=== PATIENT | female | born 1995 | race Caucasian/White ===

== ENCOUNTER 2019-03-29 14:20 | Emergency (ER) | payer OTHER, SELFPAY ==
--- NOTE | ~2019-03-29 | XR_ITS ---
EXAMINATION: XR chest 2V EXAM DATE: 03/29/2019 16:40 INDICATION: Cough, fever, congestion. Flu. TECHNIQUE: Frontal and lateral projections of the chest obtained and reviewed. There is no prior cori dy for comparison. FINDINGS: The lungs are clear. There are no pleural effusions. The cardiomediastinal silhouette is within normal limits. There is no pneumothorax suspected. The bones and soft tissues are unremarkab le. IMPRESSION: Normal chest x-ray exam. Reviewed, dictated and finalized at location A. [employer] IMPRESSION: Normal chest x-ray exam.
[2019-03-29 15:24] VITALS: BP 132/87; PULSE 97; RESP 19; TEMP 37.3; O2SAT 99
--- NOTE | 2019-03-29 16:01 | ED.URI ---
HPI - URI/Sore Throat General Chief Complaint: Upper Respiratory Infection Stated Complaint: cough and body aches Time Seen by Provider: 03/29/19 15:55 Source: patient Mode of arrival: ambulatory Limitations: no limitations History of Present Illness HPI Narrative: Patient is a 24-year-old female who presents to emergency department for evaluation of fever chills body aches cough congestion sore throat rhinorrhea began on seen at an urgent care Friday with negative influenza. Patient has been attempting [id number] medications with minimal improvement denies vomiting diarrhea and on arrival is in no distress Related Data Allergies Allergy/AdvReac Type Severity Reaction Status Date / Time No Known Allergies Allergy Verified 03/29/19 15:41 Review of Systems Review of Systems: Narrative: CONSTITUTIONAL: Positive for fever, chills, and sweats. EYES: Denies redness, or discharge. ENT: Positive for rhinorrhea, congestion, sore throat, and otalgia. CARDIOVASCULAR: Denies chest pain RESPIRATORY: Denies dyspnea. Positive for cough GASTROINTESTINAL: Denies abdominal pain, nausea, vomiting, or diarrhea. GENITOURINARY: Denies dysuria or hematuria. SKIN: Denies rash or itching. MUSCULOSKELETAL: Denies back pain, joint pain, or myalgia. NEUROLOGIC: Denies headache, or weakness. [facility] Social History Social History (Updated 03/29/19 @ 16:12 by Bird Valadez PA-C) Smoking status: Current every day smoker Gender identity (if verbalized by the patient): Female Exam Narrative: Exam Narrative: GENERAL: Ill-appearing, well-nourished, and in no acute distress. HEAD: Normocephalic, atraumatic. EYES: PERRLA and EOMI. ENT: Nares clear, no rhinorrhea or epistaxis. Mucous membranes moist. Oropharynx without tonsillar hypertrophy exudate or other lesions. NECK: Supple. No adenopathy or masses. CHEST: Clear to auscultation. No respiratory distress. Expiratory wheezes noted HEART: Regular rate and rhythm. No murmur heard. EXTREMITIES: Normal range of motion. No edema. SKIN: Warm, dry, no rash. NEURO: No focal deficits. Alert and oriented x3. PSYCH: Normal mood and affect. Course Course Emergency Course: Patient in the room in no distress aware of case findings treatment plan and diagnosis agreeing to follow-up as directed or to return if symptoms worsen or concerns Vital Signs Vital signs: Vital Signs Temperature 99.1 F 03/29/19 15:24 Pulse Rate 97 03/29/19 15:24 Respiratory Rate 19 03/29/19 15:24 Blood Pressure 132/87 03/29/19 15:24 Pulse Oximetry 99 03/29/19 15:24 Temperature 99.1 F 03/29/19 15:24 Pulse Rate 97 03/29/19 15:24 Respiratory Rate 19 03/29/19 15:24 Blood Pressure 132/87 03/29/19 15:24 Pulse Oximetry 99 03/29/19 15:24 MDM - URI/Sore Throat MDM Narrative Medical decision making narrative: Patient in the room in no distress aware of case findings treatment plan and diagnosis with influenza no pneumonia seen on chest x-ray felt appropriate for outpatient reevaluation provided with reasons to return Lab Data Labs: Influenza A Screen Negative Reference Range: Negative Influenza B Screen Positive Reference Range: Negative Discharge Plan Discharge Clinical Impression: Influenza Patient Disposition: Home, Self-Care Condition: Stable Instructions: Antibiotic Form, Influenza (ED) Additional Instructions: Follow up with your primary care provider within 5-7 days. Go to ER for shortness of breath, difficulty breathing, chest pain, fever/chills, weakness, nauseau/vomitting, etc. or any other concerns. Stay well-hydrated Take any prescribed medications as directed. Follow patient education sheets If you do not have a drug allergy to tylenol or motrin and can tolerate it then take tylenol or motrin as needed for discomfort/pain. Prescriptions: New albuterol sulfate 90 mcg/actuation HFA aerosol inhal
[2019-03-29 16:16] VITALS: PULSE 96; RESP 20
[2019-03-29] MEDS: ALBUTEROL SULFATE NEB 2.5 MG/0.5 ML INH 5 MG INHALATION (16:16)
[2019-03-29] MEDS: IPRATROPIUM BR 0.02% INH SOLN 0.5 MG/2.5 ML VIAL INHALATION (16:17)
[2019-03-29] MEDS: predniSONE 20 MG TABLET 40 MG PO (16:46)
== END 2019-03-29 16:52 | disposition home or self-care (01) ==
PROVIDERS: Emergency Provider Emergency Medicine; PCP Family Medicine
DX: J10.1 Influenza due to other identified influenza virus with other respiratory manifestations (principal); F17.210 Nicotine dependence, cigarettes, uncomplicated
CPT/HCPCS: 71046; 87804; 94640; 99283; J7512

== ENCOUNTER 2020-08-11 16:05 | Emergency (ER) | payer OTHER, SELFPAY ==
--- NOTE | ~2020-08-11 | XR_ITS ---
XR chest 2V DATE: 08/11/2020 17:29 INDICATION: Cough and congestion. Anterior upper right chest pain. Smoker. TECHNIQUE: PA and lateral views COMPARISON: March 29, 2021 view chest FINDINGS: Normal heart size. No hilar or mediastinal enlargement. No pulmonary infiltrate or consolid ation, pleural effusion or pulmonary vascular congestion or pneumothorax. Included skeletal structure s are unremarkable. IMPRESSION: Negative chest Reviewed, dictated and finalized at location A. IMPRESSION: Negative chest
[2020-08-11 16:08] VITALS: BP 146/79; PULSE 93; RESP 18; TEMP 36.2; O2SAT 98
--- NOTE | 2020-08-11 17:00 | PC.NURSE ---
Informed EDP's & PA of pt not seen yet and in room 20. Dr Valenzuela, Dr Chambers, & Isacc Culver aware of pt in room awaiting to be seen.
--- NOTE | 2020-08-11 17:41 | ED.URI ---
HPI - URI/Sore Throat General Chief Complaint: Upper Respiratory Infection Stated Complaint: cough Time Seen by Provider: 08/11/20 17:01 Source: patient and family Mode of arrival: ambulatory Limitations: no limitations History of Present Illness HPI Narrative: 25-year-old with no major medical problems here with complaints of cough. Patient states that she has been to urgent care and was given Z-Jc and prednisone however it has been 2 days the symptoms have not improved. She denies any fever or chills. She also states that he will not allow her to work because of her symptoms. She will mentions that a Covid screen was negative MD elicited complaint: cough Description of mucous: clear Able to tolerate fluids by mouth: Yes Exacerbating factors: nothing Related Data Home Medications Medication Instructions Recorded Confirmed azithromycin [Zithromax Z-Jc] mg PO 08/11/20 prednisone 20 mg PO BID 08/11/20 Allergies Allergy/AdvReac Type Severity Reaction Status Date / Time No Known Allergies Allergy Verified 08/11/20 16:11 Review of Systems Review of Systems: All systems reviewed & are unremarkable except as noted in HPI and below Constitutional: Constitutional: Reports no additional constitutional complaints Eyes: Eyes: Reports no additional eye complaints ENT: Reports system reviewed and no additional complaints, except as documented Respiratory: Respiratory: Reports no additional respiratory complaints Gastrointestinal: Gastrointestinal: Reports no additional gastrointestinal complaints PMFSH Social History Social History Smoking status: Current every day smoker Gender identity (if verbalized by the patient): Female Exam Narrative: Exam Narrative: GENERAL: Well-appearing, well-nourished, and in no acute distress. HEAD: Normocephalic, atraumatic. EYES: PERRLA and EOMI.. NECK: Supple. CHEST: Clear to auscultation. No respiratory distress. HEART: Regular rate and rhythm. No murmur heard. Normal peripheral pulses. ABDOMEN: Soft, nontender, nondistended, normal active bowel sounds. EXTREMITIES: Normal range of motion. No edema. SKIN: Warm, dry, no rash. NEURO: No focal deficits. Alert and oriented x3. PSYCH: Normal mood and affect. Course Vital Signs Vital signs: Vital Signs Temperature 36.2 C L 08/11/20 16:08 Pulse Rate 93 08/11/20 16:08 Respiratory Rate 18 08/11/20 16:08 Blood Pressure 146/79 H 08/11/20 16:08 Pulse Oximetry 98 08/11/20 16:08 Temperature 36.2 C L 08/11/20 16:08 Pulse Rate 93 08/11/20 16:08 Respiratory Rate 18 08/11/20 16:08 Blood Pressure 146/79 H 08/11/20 16:08 Pulse Oximetry 98 08/11/20 16:08 MDM - URI/Sore Throat Imaging Data Radiologist's impression: ITS Impressions Chest X-Ray 08/11/20 17:35 IMPRESSION: Negative chest Discharge Plan Discharge Clinical Impression: Upper respiratory infection Patient Disposition: Home, Self-Care Condition: Stable Instructions: Antibiotic Form, Viral Syndrome (ED) Additional Instructions: Continue home medication, can return to work. Prescriptions: No Action albuterol sulfate 90 mcg/actuation HFA aerosol inhaler 2 puff INHALATION QID PRN (Reason: shortness of breath or wheezing) Qty: 6.7 RF: 0 Zithromax Z-Jc 250 mg Capsule PO RF: 0 prednisone 20 mg Tablet 20 mg PO BID RF: 0 Follow-up/Referrals: Nino Sahu M.D. [Primary Care Provider] - Time of Disposition: 17:45
[2020-08-11 17:52] VITALS: RESP 20
== END 2020-08-11 17:57 | disposition home or self-care (01) ==
PROVIDERS: Emergency Provider Family Medicine; PCP Family Medicine
DX: J06.9 Acute upper respiratory infection, unspecified (principal); F17.210 Nicotine dependence, cigarettes, uncomplicated
CPT/HCPCS: 71046; 99283

== ENCOUNTER 2023-06-16 16:42 | Emergency (ER) | payer OTHER, SELFPAY ==
--- NOTE | ~2023-06-16 | XR_ITS ---
EXAMINATION: XR chest 2V Exam Date/Time: 06/16/2023 17:40 CDT HISTORY: cough, SOB, congestion, CP x1week hx asthma Comparison: 08/11/2020, report only. RESULT: Lines, tubes, and devices: None. Lungs and pleura: Clear. Cardiomediastinal silhouette: Normal. Other: No acute osseous or upper abdominal finding. IMPRESSION: No acute cardiopulmonary process. Reviewed, dictated and finalized at location K.
[2023-06-16 17:05] VITALS: BP 141/80; PULSE 100; RESP 14; TEMP 36.8; O2SAT 96
--- NOTE | 2023-06-16 17:25 | ED.GENADULT ---
HPI - General Adult General Chief complaint: Upper Respiratory Infection Stated complaint: cough, asthma, sob Time Seen by Provider: 06/16/23 17:25 Focused HPI: Linda Danielle is a 28 y/o PMHx of Asthma and takes Albuterol, who presents with reports of having a cough for about a week, she reports of chest pain with coughing. Denies any fevers/chills. She has tried to use her inhaler and it was helping but it hasn't really worked the past two days. GENERAL: Well-appearing, well-nourished, and in no acute distress. HEAD: Normocephalic, atraumatic. CHEST: + wheezing / RR unlabored sating 96% on RA. NEURO: ?Alert and oriented x3. Patient screened in triage and initial orders placed.? ?Additional care and disposition to be based upon?diagnostic testing and treatment. Related Data Home Medications Medication Instructions Recorded Confirmed tramadol 50 mg tablet 100 mg PO .prn 06/10/22 06/10/22 Allergies Allergy/AdvReac Type Severity Reaction Status Date / Time No Known Allergies Allergy Verified 06/16/23 16:43 [facility] Social History Social History Smoking status: Current every day smoker Gender identity (if verbalized by the patient): Female Course Vital Signs Vital signs: Vital Signs Temperature 36.8 C 06/16/23 17:05 Pulse Rate 100 06/16/23 17:05 Respiratory Rate 14 06/16/23 17:05 Blood Pressure 141/80 H 06/16/23 17:05 Pulse Oximetry 96 06/16/23 17:05 Oxygen Delivery Room Air 06/16/23 17:05 Temperature 36.7 C 06/16/23 19:34 Pulse Rate 98 06/16/23 19:34 Respiratory Rate 15 06/16/23 19:34 Blood Pressure 138/86 06/16/23 19:34 Pulse Oximetry 99 06/16/23 19:34 Oxygen Delivery Room Air 06/16/23 18:58 Medical Decision Making Vital Signs Vital Signs: Vital Signs Temperature 36.8 C 06/16/23 17:05 Pulse Rate 100 06/16/23 17:05 Respiratory Rate 14 06/16/23 17:05 Blood Pressure 141/80 H 06/16/23 17:05 Pulse Oximetry 96 06/16/23 17:05 Oxygen Delivery Room Air 06/16/23 17:05 Temperature 36.7 C 06/16/23 19:34 Pulse Rate 98 06/16/23 19:34 Respiratory Rate 15 06/16/23 19:34 Blood Pressure 138/86 06/16/23 19:34 Pulse Oximetry 99 06/16/23 19:34 Oxygen Delivery Room Air 06/16/23 18:58 Lab Data Labs: Lab Results 06/16/23 Range/Units 18:00 Influenza A (RT-PCR) Negative (Negative) Influenza B (RT-PCR) Negative (Negative) RSV (RT-PCR) Negative (Negative) SARS-CoV-2 RNA (RT-PCR) Negative (Negative) Discharge Plan Discharge Clinical Impression: Upper respiratory infection, Asthma exacerbation Patient Disposition: Home, Self-Care Condition: Stable Instructions: Antibiotic Form, Asthma (ED), Upper Respiratory Infection (ED) Prescriptions: New albuterol sulfate 90 mcg/actuation HFA aerosol inhaler 2 puff inhalation QID PRN (Reason: shortness of breath or wheezing) Qty: 8.5 0RF benzonatate 200 mg capsule 200 mg PO TID PRN (Reason: cough) Qty: 21 0RF prednisone 20 mg tablet 40 mg PO DAILY 5 Days Qty: 10 0RF No Action tramadol 50 mg tablet 100 mg PO .prn albuterol sulfate 90 mcg/actuation HFA aerosol inhaler 2 puff INHALATION QID PRN (Reason: shortness of breath or wheezing) Qty: 6.7 0RF Follow-up/Referrals: Nino Sahu M.D. [Primary Care Provider] - Time of Disposition: 19:34
[2023-06-16] MEDS: predniSONE 40 MG, predniSONE 10 MG 50 MG PO (17:59)
[2023-06-16] MEDS: IPRATROPIUM 0.5 MG/ALBUTEROL SULFATE 2.5 MG AMPUL.NEB 3 ML INHALATION (18:06)
[2023-06-16 18:08] VITALS: PULSE 85; RESP 18
[2023-06-16 18:45] LABS: Influenza A QL RT-PCR Negative (Negative); Influenza B QL RT-PCR Negative (Negative); RSV RNA, RT-PCR Negative (Negative); SARS-CoV-2 RNA PCR Negative (Negative)
[2023-06-16 18:58] VITALS: O2SAT 97
--- NOTE | 2023-06-16 19:28 | ED.GENADULT ---
HPI - General Adult General Chief complaint: Upper Respiratory Infection Stated complaint: cough, asthma, sob Time Seen by Provider: 06/16/23 17:25 History of Present Illness HPI narrative: Patient 28-year-old female presents emergency department with chief complaint of cough and upper respiratory infection patient reports prior history of asthma and is currently out of her inhaler. Related Data Home Medications Medication Instructions Recorded Confirmed tramadol 50 mg tablet 100 mg PO .prn 06/10/22 06/10/22 Allergies Allergy/AdvReac Type Severity Reaction Status Date / Time No Known Allergies Allergy Verified 06/16/23 16:43 Review of Systems Review of Systems: A 10 system review of systems was completed on the patient and is negative except for what is stated in the HPI. Nursing and ancillary documentation was reviewed. [facility] Social History Social History Smoking status: Current every day smoker Gender identity (if verbalized by the patient): Female Exam Narrative: GENERAL: Well-appearing, well-nourished, and in no acute distress. HEAD: Normocephalic, atraumatic. EYES: PERRLA and EOMI. ENT: Nares clear, no rhinorrhea or epistaxis. Mucous membranes moist. NECK: Supple. CHEST: Scattered wheezes to auscultation. No respiratory distress. HEART: Regular rate and rhythm. No murmur heard. Normal peripheral pulses. ABDOMEN: Soft, nontender, nondistended, normal active bowel sounds. EXTREMITIES: Normal range of motion. No edema. SKIN: Warm, dry, no rash. NEURO: No focal deficits. Alert and oriented x3. PSYCH: Normal mood and affect. Course Vital Signs Vital signs: Vital Signs Temperature 36.8 C 06/16/23 17:05 Pulse Rate 100 06/16/23 17:05 Respiratory Rate 14 06/16/23 17:05 Blood Pressure 141/80 H 06/16/23 17:05 Pulse Oximetry 96 06/16/23 17:05 Oxygen Delivery Room Air 06/16/23 17:05 Temperature 36.8 C 06/16/23 17:05 Pulse Rate 85 06/16/23 18:08 Respiratory Rate 18 06/16/23 18:08 Blood Pressure 141/80 H 06/16/23 17:05 Pulse Oximetry 97 06/16/23 18:58 Oxygen Delivery Room Air 04/22/24 18:58 Medical Decision Making [facility] Narrative Medical decision making narrative: Differential diagnosis includes pneumonia, asthma exacerbation, upper respiratory infection, Chest x-ray showed no focal infiltrate Patient feels better after receiving p.o. steroids and breathing treatment. The patient will be given an inhaler treatment in the emergency department Vital Signs Vital Signs: Vital Signs Temperature 36.8 C 06/16/23 17:05 Pulse Rate 100 06/16/23 17:05 Respiratory Rate 14 06/16/23 17:05 Blood Pressure 141/80 H 06/16/23 17:05 Pulse Oximetry 96 06/16/23 17:05 Oxygen Delivery Room Air 06/16/23 17:05 Temperature 36.8 C 06/16/23 17:05 Pulse Rate 85 06/16/23 18:08 Respiratory Rate 18 06/16/23 18:08 Blood Pressure 141/80 H 06/16/23 17:05 Pulse Oximetry 97 06/16/23 18:58 Oxygen Delivery Room Air 06/16/23 18:58 Lab Data Labs: Lab Results 06/16/23 Range/Units 18:00 Influenza A (RT-PCR) Negative (Negative) Influenza B (RT-PCR) Negative (Negative) RSV (RT-PCR) Negative (Negative) SARS-CoV-2 RNA (RT-PCR) Negative (Negative) Discharge Plan Discharge Clinical Impression: Upper respiratory infection, Asthma exacerbation Patient Disposition: Home, Self-Care Condition: Stable Instructions: Antibiotic Form, Asthma (ED), Upper Respiratory Infection (ED) Prescriptions: New albuterol sulfate 90 mcg/actuation HFA aerosol inhaler 2 puff inhalation QID PRN (Reason: shortness of breath or wheezing) Qty: 8.5 0RF benzonatate 200 mg capsule 200 mg PO TID PRN (Reason: cough) Qty: 21 0RF prednisone 20 mg tablet 40 mg PO DAILY 5 Days Qty: 10 0RF No Action tramadol 50 mg tablet 100 mg
[2023-06-16] MEDS: BENZONATATE 100 MG CAPSULE 200 MG PO (19:32)
[2023-06-16] MEDS: ALBUTEROL SULFATE (*SP) INHALER 2 PUFF INHALATION (19:32)
[2023-06-16 19:34] VITALS: BP 138/86; PULSE 98; RESP 15; TEMP 36.7; O2SAT 99
== END 2023-06-16 19:39 | disposition home or self-care (01) ==
PROVIDERS: Nurse Practitioner Family; Emergency Provider Emergency Medicine; PCP Family Medicine
DX: J06.9 Acute upper respiratory infection, unspecified (principal); J45.901 Unspecified asthma with (acute) exacerbation; Z20.822 Contact with and (suspected) exposure to COVID-19; F17.210 Nicotine dependence, cigarettes, uncomplicated
CPT/HCPCS: 71046; 87637; 94640; 99283; A9270; J7512

== ENCOUNTER 2024-04-11 12:05 | Emergency (ER) | payer OTHER, SELFPAY ==
--- NOTE | ~2024-04-11 | CT_ITS ---
EXAMINATION: CT lumbar spine wo con DATE: 04/11/2024 16:14 INDICATION: Back pain TECHNIQUE: Computed tomography (CT) of the lumbar spine was performed without intravenous contrast. A utomated exposure control and iterative reconstruction technique were employed. The dose-length produ ct was 933.75 mGy-cm. COMPARISON: None FINDINGS: 10 degrees lumbar dextrocurvature. Sagittal alignment is normal. Vertebral body heights are normal. N o fractures. Mild disc height loss at L5-S1. The more cephalad disc heights are normal. Mild osteoart hritis at the bilateral sacroiliac joints. The following disc levels are specifically discussed: T12-L1: There is mild to moderate bilateral facet joint osteoarthritis. There is no neural foraminal stenosis. There is no central canal stenosis. L1-L2: There is mild bilateral facet joint osteoarthritis. There is no neural foraminal stenosis. The re is no central canal stenosis. L2-L3: Disc is mildly bulging. There is mild right and mild to moderate left facet joint osteoarthrit is. There is no neural foraminal stenosis. There is mild central canal stenosis. L3-L4: Disc is bulging. There is mild right and minimal left facet joint osteoarthritis. There is min imal bilateral neural foraminal stenosis. There is mild central canal stenosis. L4-L5: Disc is bulging. There is mild right and minimal left facet joint osteoarthritis. There is mil d bilateral neural foraminal stenosis. There is mild central canal stenosis. L5-S1: Disc is bulging. There is mild bilateral facet joint osteoarthritis. There is mild bilateral, left greater than right neural foraminal stenosis. There is mild central canal stenosis. IMPRESSION: 1. Mild lumbar dextrocurvature with minimal to mild spondylosis. No acute osseous abnormality. Reviewed, dictated and finalized at location A. [facility]PER IMPRESSION: 1. Mild lumbar dextrocurvature with minimal to mild spondylosis. No acute osseo us abnormality.
[2024-04-11 12:19] VITALS: BP 154/111; PULSE 81; RESP 20; TEMP 36.5; O2SAT 100
--- OUTSIDE RECORDS SUMMARY | 2024-04-11 13:01 | XMS_ITS | Clinical Summary ---
Author Organization [facility] Address [address] [place] [address] Care Team Providers Care Sports Editor Name Role Phone Nino Sahu MD Primary Care Provider [phone] Allergies No known active allergies Medications albuterol sulfate HFA 108 (90 Base) MCG/ACT inhaler Inhale 2 puffs into the lungs every 6 (six) hours as needed for Wheezing. 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 ( [facility] 02/03/2020 Encounters Date Type Department Care Team Description 04/06/2024 12:20 PM SCRUBBER MACHINE TENDER - 04/06/2024 11:59 PM [facility] Hospital Encounter [facility] [address] [place] [address] Hazel Dunbar PA-C Discharge Disposition: Home or Self Care (Routine Discharge) 04/06/2024 Travel 03/03/2024 10:15 AM SCRUBBER MACHINE TENDER Office Visit [facility] [address] [place] [address] Juliann Han MD MRI Results (LEFT knee); Knee Pain (RIGHT) 03/03/2024 Travel 02/12/2024 9:52 AM SCRUBBER MACHINE TENDER - 02/12/2024 11:59 PM SCRUBBER MACHINE TENDER Hospital Encounter [facility] [address] [place] [address] Juliann Han MD Discharge Disposition: Home or Self Care (Routine Discharge) 02/12/2024 Travel 02/04/2024 10:30 AM SCRUBBER MACHINE TENDER Office Visit [address] [address] Juliann Han MD Knee Pain (LEFT) 02/04/2024 Travel 02/03/2024 9:24 AM SCRUBBER MACHINE TENDER - 02/03/2024 11:59 PM SCRUBBER MACHINE TENDER Hospital Encounter [facility] [address] [place] [address] Azul Estrada PA Discharge Disposition: Home or Self Care (Routine Discharge) 02/03/2024 Travel 02/02/2024 Orders Only [address] [address] Juliann Han MD from Last 3 Months Social History Tobacco Use Types Packs/Day Years Used Date Smoking Tobacco: Former Cigarettes 1 7 Smokeless Tobacco: Never Tobacco Cessation:Counseling Given: Not Answered Alcohol Use Standard Drinks/Week Comments Not Currently 0 (1 standard drink = 0.6 oz pur e alcohol) Humiliation, Afraid, Rape, and Kick questionnair e Answer Date Recorded Within the last year, have y ou been afraid of your partner or ex-partner? No 02/03/2020 Within the last year, have y ou been humiliated or emotionally abused in other ways by your partner or ex-partner? No Within the last year, have y ou been kicked, hit, slapped, or otherwise physically hurt by your partner or ex-partner? No 02/03/2020 Within the last year, have y ou been raped or forced to have any kind of sexual activity by your partner or ex-partner? No 02/03/2020 Overall Financial Resource Strain (CARDIA) Answe r Date Recorded How hard is it for you to pa y for the very basics like food, housing, medical care, and heating? Not hard at all 02/03/2020 Depression Answer Date Recor ded Last EPDS Total Score 5 02/06/2020 Last EPDS Self Harm Result 02/05 Comments No Sex and Gender Information Value Date Recorded Sex Assigned at Female 04/06/2024 12:19 PM SCRUBBER MACHINE TENDER Legal Sex Female 5:53 PM SCRUBBER MACHINE TENDER Gender Identity Not on file Sexual Orientation Straight 03/26/2019 11 :59 PM SCRUBBER MACHINE TENDER Last Filed Vital Signs Vital Sign Reading Time Taken Comments Blood Pressure 114/82 01/05/2024 5:30 PM SCRUBBER MACHINE TENDER Pulse 93 01/05/2024 2:53 PM SCRUBBER MACHINE TENDER Temperature 37 C (98.6 F) 01/05/2024 2:53 PM SCRUBBER MACHINE TENDER Respiratory Rate 16 01/05/2024 2:53 PM SCRUBBER MACHINE TENDER Oxygen Saturation 99% 01/05/2024 5:30 PM SCRUBBER MACHINE TENDER Inhaled Oxygen Concentration - - Weight 89.4 kg (197 lb) 03/03/2024 10:18 AM SCRUBBER MACHINE TENDER Height 160 cm (5' 3 ) 03/03/2024 10:18 AM SCRUBBER MACHINE TENDER Body Mass Index 34.9 03/03/2024 10:18 AM SCRUBBER MACHINE TENDER Plan of Treatment Upcoming Encounters Date Type Department Care Team (Late st Contact Info) Description 04/14/2024 1:30 PM SCRUBBER MACHINE TENDER Office Visit [place] [id number] Juliann Han MD [address] [place] [address] Health Maintenance Due Date Last Done Comments Cervical Cancer Screening Pa p Smear (Age 30 to 64) Every 3 Years 1994 Annual Physical 1997 Hepatitis C 2012 DTaP, Tdap and Td Vaccines ( 1 - Tdap) 2013 Hepatitis B Vaccines (1 of 3 - 19+ 3-dose series) 2013 COVID-19 Vaccine ( - 2023-2 5 season) 2023 Influenza Adult (#1) 2023 12/11/2013 Cervical Cancer Screening Pa p with HPV Testing (Age 30 to 64) Every 5 Years 2024 Cervical Cancer Screening with HPV 2024 HPV Vaccines Aged Out No longer eligi ble based on patient's age to complete this topic Meningococcal B Vaccine Aged Out No l onger eligible based on patient's age to complete this topic Meningococcal Vaccine Aged Out No obed kostas eligible based on patient's age to complete this topic Pneumococcal Vaccine: Pediat rics (0 to 5 Years) and At-Risk Patients (6 to 64 Years) Aged Out No longer eligi ble based on patient's age to complete this topic RSV Immunizations Under 20 Months Aged Out No longer eligible based on patient's age to complete this topic Procedures Procedure Name Priority Date/Time Associated Diagnosis Comments US PELVIC NON OB COMP TA Routine 04/06/2024 1:53 PM SCRUBBER MACHINE TENDER Right ovarian cyst MRI KNEE LT WO CON Routine 02/12/2024 10 :55 AM SCRUBBER MACHINE TENDER Other tear of lateral meniscus of left knee as current injury, initial encounter JOINT ASPIRATION/INJECTIO N Routine 02/04/2024 11:04 AM SCRUBBER MACHINE TENDER Other tear of lateral meniscus of left knee as current injury, initial encounter XR KNEE LT MIN 4V Routine 02/03/2024 9:5 1 AM SCRUBBER MACHINE TENDER Chronic pain of left knee XR LUMB SPINE 3V Routine 02/03/2024 9:43 AM SCRUBBER MACHINE TENDER Back pain from Last 3 Months Results * US PELVIC NON OB COMP TA (04/06/2024 1:53 PM SCRUBBER MACHINE TENDER) Anatomical Region Laterality Modality Pelvis Ultrasound 04/08/2024 4:43 PM SCRUBBER MACHINE TENDER Impressions 04/08/2024 5:10 PM SCRUBBER MACHINE TENDER IMPRESSION: 1. A O-RADS 2 right ovarian cyst up to 3.9 cm, unchanged for at least 4 months. Since it hasn't resolved, may consider follow-up sonogram in 3 months to document further stability. 2.O-RADS 2 left ovarian cysts up to 3.8 cm, new. Close attention to on follow-up sonogram in 3 months. Ordered By: HAZEL DUNBAR Interpreted By: Grady Deal MD, 04/08/2024 4:43 PM Narrative 04/08/2024 5:10 PM SCRUBBER MACHINE TENDER [address] [place] [address] EXAMINATION: Complete pelvic sonogram (non-obstetric) CLINICAL HISTORY: 29 years female with history of right ovarian cyst 2 Para 2 LMP= 03/16/2024 COMPARISON: Pelvic sonogram on 12/10/2023 TECHNIQUE: Ultrasound examination of the pelvis was performed utilizing transabdominal approach to assess grayscale appearance, color doppler flow, and spectral waveform characteristics. FINDINGS: Uterus: 7.5 x 4 x 5.1 cm. No masses. Endometrial stripe: 5 mm in thickness. Cervix: Nabothian cysts. Right ovary: 6.7 x 3.3 x 4.1 cm. Normal echogenicity. Normal blood flow and spectral analysis. Approximately 3.9 x 3 6 cm anechoic cysts in the right ovary. Left ovary: 4.5 x 3.9 x 4 cm. Normal echogenicity. Normal blood flow and spectral analysis. Approximately 3.8 x 2.7 cm cyst in the left ovary. Other findings: No free fluid is seen within the pelvis. Visible bladder not adequately distended. Procedure Note Grady Deal MD - 04/08/[address] [place] [address] EXAMINATION: Complete pelvic sonogram (non-obstetric) CLINICAL HISTORY: 29 years female with history of right ovarian cyst 2 Para 2 LMP= 03/16/2024 COMPARISON: Pelvic sonogram on 12/10/2023 TECHNIQUE: Ultrasound examination of the pelvis was performed utilizingtransabdominal approach to assess grayscale appearance, color dopplerflow, and spectral waveform characteristics. FINDINGS: Uterus: 7.5 x 4 x 5.1 cm. No masses. Endometrial stripe: 5 mm in thickness. Cervix: Nabothian cysts. Right ovary: 6.7 x 3.3 x 4.1 cm. Normal echogenicity. Normal blood flowand spectral analysis. Approximately 3.9 x 3 6 cm anechoic cysts in theright ovary. Left ovary: 4.5 x 3.9 x 4 cm. Normal echogenicity. Normal blood flow andspectral analysis. Approximately 3.8 x 2.7 cm cyst in the left ovary. Other findings: No free fluid is seen within the pelvis. Visible bladder not adequately distended. IMPRESSION: 1. A O-RADS 2 right ovarian cyst up to 3.9 cm, unchanged for at least 4months. Since it hasn't resolved, may consider follow-up sonogram in 3months to document further stability. 2.O-RADS 2 left ovarian cysts up to 3.8 cm, new. Close attention to onfollow-up sonogram in 3 months. Ordered By: HAZEL DUNBAR Interpreted By: Grady Deal MD, 04/08/2024 4:43 PM us Hazel Dunbar PA-C ULTRASOUND Final Resul t * MRI KNEE LT WO CON (02/12/2024 10:55 AM SCRUBBER MACHINE TENDER) Anatomical Region Laterality Modality Knee Magnetic Resonan ce 02/17/2024 1:46 PM SCRUBBER MACHINE TENDER Impressions 02/17/2024 1:57 PM SCRUBBER MACHINE TENDER IMPRESSION: 1. Abnormal morphology and signal abnormality of the body and anterior horn of the lateral meniscus, compatible with a combination of surgical changes from prior partial meniscectomy and superimposed tear. The extent of signal abnormality within the lateral meniscus is decreased in prominence compared to the prior examination and the previously seen loculated parameniscal cyst has resolved in the interim. No signal abnormality is seen to suggest new meniscal tear. 2. Trace joint effusion with a small volume of joint fluid extending posteromedially into a small loculated popliteal cyst. 3. Minimal articular cartilage degeneration along the central and posterior weightbearing zone of the lateral femoral condyle and minimal focal fissuring of articular cartilage along the inferior medial patellar facet. Referred By: JULIANN HAN Interpreted By: Devaughn Morales DO, 02/17/2024 1:46 PM Narrative 02/17/2024 1:57 PM SCRUBBER MACHINE TENDER [place] [id number] [place] [place] [id number] MRI of the left knee without contrast Exam Date: 02/12/2024 10:30 AM History: Lateral meniscus tear. Chronic left knee pain. History of surgery in 2021. Comparison Studies: Left knee radiographs 02/03/2024 and MRI of the left knee 04/30/2022. TECHNIQUE: Multiplanar, multisequence MR imaging of the left knee was performed without intravenous contrast. FINDINGS: * Menisci: The medial meniscus is intact without evidence to suggest fluid-filled tear. There is abnormal morphology and signal abnormality of the body and anterior horn of the lateral meniscus compatible with a combination of surgical changes from prior partial meniscectomy and superimposed tear. The extent of this signal abnormality appears decreased in prominence compared to the prior examination. The previously seen loculated parameniscal cyst along the body of the lateral meniscus has resolved in the interim. No signal abnormality is seen to suggest new meniscal tear. * Ligaments: The anterior and posterior cruciate ligaments are intact. The medial collateral ligament is intact. The iliotibial band, lateral collateral ligament proper, biceps femoris tendon, and popliteus tendon are intact. * Extensor Mechanism: The distal quadriceps and patellar tendons are intact. No evidence is seen to suggest gross disruption of the medial or lateral patellar retinacula. * Joint: There is a trace joint effusion. A small volume of joint fluid extends posteromedially into a small loculated popliteal cyst. No discrete intra-articular body is seen. * Articular Cartilage: There is minimal articular cartilage degeneration along the central and posterior weightbearing zones of the lateral femoral condyle. Articular cartilage in the medial compartment is preserved. There is minimal focal fissuring along the inferior portion of the medial patellar facet (series 3 image 11). * Miscellaneous: There is no marrow signal abnormality to suggest acute fracture or contusion. Procedure Note Devaughn Morales, - 02/17/2024 [facility] [address] [place] [id number] MRI of the left knee without contrast Exam Date: 02/12/2024 10:30 AM History: Lateral meniscus tear. Chronic left knee pain. History ofsurgery in 2021. Comparison Studies: Left knee radiographs 02/03/2024 and MRI of the leftknee 04/30/2022. TECHNIQUE: Multiplanar, multisequence MR imaging of the left knee wasperformed without intravenous contrast. FINDINGS: * Menisci: The medial meniscus is intact without evidence to suggestfluid-filled tear. There is abnormal morphology and signal abnormality ofthe body and anterior horn of the lateral meniscus compatible with acombination of surgical changes from prior partial meniscectomy andsuperimposed tear. The extent of this signal abnormality appearsdecreased in prominence compared to the prior examination. The previouslyseen loculated parameniscal cyst along the body of the lateral meniscushas resolved in the interim. No signal abnormality is seen to suggest newmeniscal tear. * Ligaments: The anterior and posterior cruciate ligaments are intact.The medial collateral ligament is intact. The iliotibial band, lateralcollateral ligament proper, biceps femoris tendon, and popliteus tendonare intact. * Extensor Mechanism: The distal quadriceps and patellar tendons areintact. No evidence is seen to suggest gross disruption of the medial orlateral patellar retinacula. * Joint: There is a trace joint effusion. A small volume of joint fluidextends posteromedially into a small loculated popliteal cyst. Nodiscrete intra- articular body is seen. * Articular Cartilage: There is minimal articular cartilage degenerationalong the central and posterior weightbearing zones of the lateral femoralcondyle. Articular cartilage in the medial compartment is preserved.There is minimal focal fissuring along the inferior portion of the medialpatellar facet (series 3 image 11). * Miscellaneous: There is no marrow signal abnormality to suggest acutefracture or contusion. IMPRESSION: 1. Abnormal morphology and signal abnormality of the body and anteriorhorn of the lateral meniscus, compatible with a combination of surgicalchanges from prior partial meniscectomy and superimposed tear. The extentof signal abnormality within the lateral meniscus is decreased inprominence compared to the prior examination and the previously seenloculated parameniscal cyst has resolved in the interim. No signalabnormality is seen to suggest new meniscal tear. 2. Trace joint effusion with a small volume of joint fluid extendingposteromedially into a small loculated popliteal cyst. 3. Minimal articular cartilage degeneration along the central andposterior weightbearing zone of the lateral femoral condyle and minimalfocal fissuring of articular cartilage along the inferior medial patellarfacet. Referred By: JULIANN HAN Interpreted By: Devaughn Morales DO, 02/17/2024 1:46 PM us Juliann Han MD MRI Final Result * ARTHROCENTESIS (02/04/2024 11:04 AM SCRUBBER MACHINE TENDER) Narrative Janett Singh RN - 02/04/2024 11:04 AM SCRUBBER MACHINE TENDER Janett Singh RN 02/04/2024 11:37 AM ARTHROCENTESIS Date/Time: 02/04/2024 11:04 AM Performed by: Juliann Han MD Authorized by: Juliann Han MD Consent: Consent obtained: Verbal Risks discussed: Pain Halfway protocol: Procedure explained and questions answered to patient or proxy's satisfaction: yes Relevant documents present and verified: yes Test results available: yes Imaging studies available: yes Required blood products, implants, devices, and special equipment available: yes Site/side marked: yes Immediately prior to procedure, a time out was called: yes Location: Location: Knee Knee: L knee Procedure details: Needle gauge: 18 G Ultrasound guidance: no Approach: Lateral us Juliann Han MD PROCEDURE/MINOR SURGICAL ORDERA BLES Edited Result - Final * XR KNEE LT MIN 4V (02/03/2024 9:51 AM SCRUBBER MACHINE TENDER) Anatomical Region Laterality Modality Knee Radiographic Sue ging 02/03/2024 9:53 AM SCRUBBER MACHINE TENDER Impressions 02/03/2024 9:54 AM SCRUBBER MACHINE TENDER IMPRESSION: Stable, unremarkable exam. Ordered By: JULIANN HAN Interpreted By: Mariano Keenan MD, 02/03/2024 9:53 AM Narrative 02/03/2024 9:54 AM SCRUBBER MACHINE TENDER [address] [place] [address] Examination: Left knee. Exam time: 0925 hours. Clinical history: Chronic pain. Comparison: 04/25/2022. Technique: Bilateral weightbearing PA and sunrise and weightbearing AP and lateral views on the left. Findings: No fracture, dislocation or other acute bony abnormality is identified. No other significant bone or joint abnormality is noted. The soft tissues are unremarkable. Procedure Note Mariano Keenan MD - 02/03/[address] [place] [address] Examination: Left knee. Exam time: 0925 hours. Clinical history: Chronic pain. Comparison: 04/25/2022. Technique: Bilateral weightbearing PA and sunrise and weightbearing AP andlateral views on the left. Findings: No fracture, dislocation or other acute bony abnormality isidentified. No other significant bone or joint abnormality is noted. Thesoft tissues are unremarkable. IMPRESSION: Stable, unremarkable exam. Ordered By: JULIANN HAN Interpreted By: Mariano Keenan MD, 02/03/2024 9:53 AM Juliann Han MD GENERAL IMAGING Final Result * XR LUMB SPINE 3V (02/03/2024 9:43 AM SCRUBBER MACHINE TENDER) Anatomical Region Laterality Modality Spine Radiographic Sue ging 02/03/2024 9:49 AM SCRUBBER MACHINE TENDER Impressions 02/03/2024 9:56 AM SCRUBBER MACHINE TENDER IMPRESSION: Unremarkable. Ordered By: AZUL ESTRADA Interpreted By: Mariano Keenan MD, 02/03/2024 9:49 AM Narrative 02/03/2024 9:56 AM SCRUBBER MACHINE TENDER [address] [place] [address] Examination: Lumbar spine Exam time: 0920 hours. Clinical history: Lifting injury. Pain. Comparison: None. Technique: AP, lateral and spot lateral views. Findings: There is no fracture or dislocation. Vertebral body height and alignment are satisfactory. The intervertebral disc spaces are maintained normally in height. The paraspinous soft tissues are unremarkable. Procedure Note Mariano Keenan MD - 02/03/[address] [place] [address] Examination: Lumbar spine Exam time: 0920 hours. Clinical history: Lifting injury. Pain. Comparison: None. Technique: AP, lateral and spot lateral views. Findings: There is no fracture or dislocation. Vertebral body height andalignment are satisfactory. The intervertebral disc spaces are maintainednormally in height. The paraspinous soft tissues are unremarkable. IMPRESSION: Unremarkable. Ordered By: AZUL ESTRADA Interpreted By: Mariano Keenan MD, 02/03/2024 9:49 AM us Azul Estrada [facility] GENERAL IMAGING Final Result from Last 3 Months Insurance [employer] Advance Directives * Full Code (Latest Code Status on File) Date Activated Date Inactivated Comments 02/03/2020 4:46 PM 02/06/2020 3:26 PM * Full Code Date Activated Date Inactivated Comments 12/30/2019 3:05 PM 12/30/2019 5:54 PM Care Teams Sports Editor Relationship Specialty Start Date End Date Nino Sahu MD [address] [place] [address] PCP - General FAMILY PRACTICE 03/26/19
--- OUTSIDE RECORDS SUMMARY | 2024-04-11 13:01 | XMS_ITS | Encounter Summary ---
Author Organization [facility] Address [address] [place] [address] Care Team Providers Care Husker Operator Name Role Phone Nino Sahu MD Primary Care Provider [phone] Nino Sahu MD Primary Care Provider Encounter Details Date Type Department Care Team (Late Contact Info) Description 08/01/2018 Abstract [facility] [address] [place] [address] , Generic Conversion, Social History Tobacco Use Types Packs/Day Years Used Date Smoking Tobacco: Never Assessed Comments Unknown Sex and Gender Information Value Date Recorded Sex Assigned at Female 04/06/2024 12:19 PM RECREATIONAL RESORT MANAGER Legal Sex Female 5:53 PM RECREATIONAL RESORT MANAGER Gender Identity Not on file Sexual Orientation Straight 03/26/2019 11 :59 PM RECREATIONAL RESORT MANAGER documented as of this encounter Plan of Treatment Upcoming Encounters Date Type Department Care Team (Late Contact Info) Description 04/14/2024 1:30 PM RECREATIONAL RESORT MANAGER Office Visit [facility] [address] [place] [id number] Hamilton Ramírez MD [address] [place] [address] documented as of this encounter Visit Diagnoses Not on filedocumented in this encounter Additional Health Concerns Infection Onset Date Last Indicated Resolved Time COVID-19 Rule Out 02/03/2020 02/03/2020 02/03/2020 6:50 PM RECREATIONAL RESORT MANAGER COVID-19 Rule Out 12/11/2020 12/11/2020 12/11/2020 12:59 PM CDT COVID-19 Rule Out 10/14/2021 10/14/2021 10/14/2021 9:01 PM CDT documented as of this encounter Care Teams Husker Operator Relationship Specialty Start Date End Date Nino Sahu MD [address] [place] [address] PCP - General FAMILY PRACTICE 11/05/18 03/25/19 Nino Sahu MD [address] [place] [address] PCP - General FAMILY PRACTICE 03/26/19 documented as of this encounter
[2024-04-11] MEDS: HYDROcodone/acetaminophen (*CRX) 5-325 MG TABLET 1 TAB PO (15:25)
[2024-04-11] MEDS: CYCLOBENZAPRINE HCL 10 MG TABLET PO (15:26)
[2024-04-11 16:07] LABS: BEDSIDEPREGUCG Negative (Negative)
[2024-04-11 16:09] LABS: Add Urine Microscopic? YES; Appearance Urine Cloudy (Clear); Bacteria Urine 1+ /hpf; Bilirubin Urine Negative (Negative); Blood Urine Negative (Negative); Color Urine Yellow (Yellow); Glucose Urine UA Negative (Negative); Ketones Urine Negative (Negative); Leukocyte Esterase Ur 3+ LEU/UL (Negative); Nitrate Urine Negative (Negative); Non Pathogenic Casts 0-2; Protein Urine Negative (Negative); RBC Urine 0-2 /hpf (0-2); Specific Grav Ur 1.014 (1.001-1.035); Squamous Epithelial Cell Urine Moderate /hpf (Few); Urobilinogen Urine 0.2 mg/dL (<2.0); WBC Urine 21-50 /hpf (0-3); pH Urine 5.5 (5.0-9.0)
--- NOTE | 2024-04-11 16:23 | ED.GENADULT ---
HPI - General Adult General Chief complaint: Back Pain/Injury Stated complaint: back pain Time Seen by Provider: 04/11/24 12:46 History of Present Illness HPI narrative: 29-year-old female presents to the emergency department for evaluation for back pain. Patient states back pain have been ongoing for a number of weeks. Patient has had follow-up with [facility]. Patient did receive a steroid injection but states this did not help. Patient reports that while she was having lower back pain initially she is not having some pain that radiates down the right hip consistent with previous sciatica. Patient denies any loss of bowel or bladder control. Patient denies any numbness or weakness. Patient denies any prior history of back surgery. Related Data Home Medications ?Medication ?Instructions ?Recorded ?Confirmed ?Last Taken ?Type tramadol 50 mg tablet 100 mg PO .prn 06/10/22 06/10/22 Unknown History Allergies Allergy/AdvReac Type Severity Reaction Status Date / Time No Known Allergies Allergy Verified 04/11/24 12:24 Review of Systems Review of Systems: All systems reviewed & are unremarkable except as noted in HPI and below PMFSH Social History Social History Smoking status: Current every day smoker Gender identity (if verbalized by the patient): Female Exam Narrative: APPEARANCE: Well appearing, no pain, no distress, well-nourished. HEAD: normocephalic, atraumatic. EYES: PERRLA/EOMI, conjunctivae clear. NOSE: Normal no drainage EARS:TMS clear with good light reflex. THROAT: Pharynx clear, no exudate. NECK: Supple. No adenopathy, no masses. RESPIRATORY: Airway patent, respirations nonlabored. Clear to auscultation bilaterally, no rales, rhonchi, wheezing. CARDIOVASCULAR: Regular rate and rhythm without murmurs rubs or gallops. ABDOMINAL: Soft, nontender, nondistended, normal bowel sounds MUSCULOSKELETAL: Tenderness to right lower back and tenderness to right buttock NEURO: Alert. Cranial nerves II through XII intact. Good gait. Good coordination SKIN: Warm, dry. Normal Color Course Vital Signs Vital signs: Vital Signs Temperature 97.7 F 04/11/24 12:19 Pulse Rate 81 04/11/24 12:19 Respiratory Rate 20 04/11/24 12:19 Blood Pressure 154/111 H 04/11/24 12:19 Pulse Oximetry 100 04/11/24 12:19 Oxygen Delivery Room Air 04/11/24 12:19 Temperature 97.7 F 04/11/24 17:13 Pulse Rate 79 04/11/24 17:13 Respiratory Rate 18 04/11/24 17:13 Blood Pressure 138/84 04/11/24 17:13 Pulse Oximetry 99 04/11/24 17:13 Oxygen Delivery Room Air 04/11/24 12:19 Medical Decision Making MDM Narrative Medical decision making narrative: 29-year-old female present to the emergency department for evaluation for worsening lower back pain that radiates into her right leg. Patient did have prior x-rays that were negative. Patient states symptoms have been worsening. CT was ordered to evaluate for previous on scene pathology and this was also negative for any acute findings. UA was ordered and did show evidence of urinary tract infection. Patient was started on Keflex and Pyridium for the urinary tract infection. Patient was started on Medrol Dosepak for the sciatica and patient was advised to negative for pain control, she is provided additional [place] for pain control and patient was also provided Flexeril for muscle spasm. Patient was continued to encouraged close follow-up with her pain management and that she might benefit from physical therapy. All questions concerns were addressed. Differential Diagnosis Differential Diagnosis: Spinal injury, sciatica, vertebral fracture, UTI Vital Signs Vital Signs: Vital Signs Temperature 97.7 F 04/11/24 12:19 Pulse Rate 81 04/11/24 12:19 Respiratory Rate 20 04/11/24 12:19 Blood Pressure 154/111 H 04/11/24 12:19 Pulse Oximetry 100 04/11/24 12:19 Oxygen Delivery Room Air 04/11/24 12:19 Temperature 97.7 F 04/11/24 17:13 Pulse Rate 79 04/11/24 17:13 Respiratory Rate 18 04/11/24 17:13 Blood Pressure 138/84 04/11/24 17:13 Pulse Oximetry 99 04/11/24 17:13 Oxygen Delivery Room Air 04/11/24 12:19 Lab Data Lab results reviewed: Yes I reviewed the patient's lab results. Labs: Lab Results 04/11/24 04/11/24 Range/Units 16:00 16:05 Urine Color Yellow (Yellow) Urine Appearance Cloudy H (Clear) Urine pH 5.5 (5.0-9.0) Ur Specific [place] 1.014 (1.001-1.035) Urine Protein Negative (Negative) mg/dL Urine Glucose (UA) Negative (Negative) mg/dL Urine Ketones Negative (Negative) mg/dL Ur Blood (Man) Negative (Negative) Urine Nitrate Negative (Negative) Urine Bilirubin Negative (Negative) Urine Urobilinogen 0.2 (<2.0) mg/dL Leukocyte Esterase Rfl 3+ H (Negative) MAGDALENA/UL Urine RBC 0-2 (0-2) /hpf Urine WBC 21-50 H (0-3) /hpf Ur Squamous Epith Cells Moderate (Few) /hpf Urine Bacteria 1+ H /hpf Urine Casts 0-2 POC Urine HCG, Qual Negative (Negative) Imaging Data Radiologist's impression: Impressions Lumbar Spine CT 04/11/24 16:38 IMPRESSION: 1. Mild lumbar dextrocurvature with minimal to mild spondylosis. No acute osseous abnormality. Discharge Plan Discharge Clinical Impression: Sciatica, UTI (urinary tract infection) Patient Disposition: Home, Self-Care Condition: Stable Instructions: Antibiotic Form, Urinary Tract Infection in Women (ED), Sciatica (ED), Back Pain (ED) Additional Instructions: Ibuprofen as directed for back pain, [place] as needed for additional pain control, Flexeril for muscle spasm. Medrol Dosepak as directed until completed for sciatica. Antibiotic as directed for the urinary tract infection and Pyridium as needed for urinary symptoms. Continue to have close follow-up with pain management. Patient Language: British Prescriptions: New cyclobenzaprine 10 mg tablet 10 mg PO BID PRN (Reason: muscle spasm) Qty: 14 0RF cephalexin 500 mg capsule 500 mg PO Q8H 7 Days Qty: 21 0RF methylprednisolone [Medrol (Jc)] 4 mg tablets,dose pack See Rx Instructions .ROUTE .COMPLEX Qty: 21 0RF Rx Instructions: for 6 days phenazopyridine [Pyridium] 100 mg tablet 100 mg PO TID PRN (Reason: pain) Qty: 6 0RF hydrocodone-acetaminophen 5-325 mg tablet 1 tablet PO Q12H PRN (Reason: pain) Qty: 14 0RF No Action tramadol 50 mg tablet 100 mg PO .prn albuterol sulfate 90 mcg/actuation HFA aerosol inhaler 2 puff INHALATION QID PRN (Reason: shortness of breath or wheezing) Qty: 6.7 0RF albuterol sulfate 90 mcg/actuation HFA aerosol inhaler 2 puff inhalation QID PRN (Reason: shortness of breath or wheezing) Qty: 8.5 0RF benzonatate 200 mg capsule 200 mg PO TID PRN (Reason: cough) Qty: 21 0RF prednisone 20 mg tablet 40 mg PO DAILY 5 Days Qty: 10 0RF Follow-up/Referrals: Nino Sahu M.D. [Primary Care Provider] -
[2024-04-11] MEDS: CEPHALEXIN 500 MG CAPSULE PO (16:56)
[2024-04-11] MEDS: PHENAZOPYRIDINE HCL 100 MG TABLET PO (16:56)
[2024-04-11 17:13] VITALS: BP 138/84; PULSE 79; RESP 18; TEMP 36.5; O2SAT 99
== END 2024-04-11 17:15 | disposition home or self-care (01) ==
PROVIDERS: Emergency Provider Emergency Medicine; PCP Family Medicine
DX: M54.41 Lumbago with sciatica, right side (principal); N39.0 Urinary tract infection, site not specified; F17.200 Nicotine dependence, unspecified, uncomplicated
CPT/HCPCS: 72131; 81001; 81025; 99284; A9270